=== PATIENT | female | born 1970 | race Caucasian/White ===

== ENCOUNTER 2016-12-25 23:38 | Emergency (ER) | payer MEDICAID ==
[2016-12-26 00:30] LABS: BASOPHIL % 0.3 % (0-2); PLATELET COUNT 260 x10^3mcL (130-400); RED CELL DISTRIBUTION WIDTH 12.8 % (11.5-14.5)
[2016-12-26 00:38] LABS: CALCIUM 8.9 mg/dL (8.5-10.1); CARBON DIOXIDE 28.9 mmol/L (21-32); CHLORIDE SERUM 102 mmol/L (98-107); CREATININE SERUM 0.8 mg/dL (0.6-1.0); GFR1 > 60 mL/min; GLUCOSE SERUM 333 mg/dL (74-106); SODIUM SERUM 135 mmol/L (136-145)
[2016-12-26 00:41] LABS: ALKALINE PHOSPHATASE 123 U/L (46-116); ALT/SGPT 30 U/L (14-59); AMYLASE 43 U/L (25-115); AST/SGOT 16 U/L (15-37); BILIRUBIN TOTAL 0.1 mg/dL (0.20-1.00); LIPASE 92 IU/L (73-393); TOTAL PROTEIN, SERUM 7.1 g/dL (6.4-8.2)
[2016-12-26 00:44] LABS: ALBUMIN 3.3 g/dL (3.4-5.0)
[2016-12-26 00:55] LABS: microscopic required? YES; urine erythrocyte NEGATIVE (NEGATIVE)
[2016-12-26 03:49] VITALS: BP 121/72
== END 2016-12-26 03:49 | disposition home or self-care (01) ==
LOC: ED 23:38
PROVIDERS: Emergency Medicine
DX: S20.211A Contusion of right front wall of thorax, initial encounter (principal); E11.9 Type 2 diabetes mellitus without complications; Z79.84 Long term (current) use of oral hypoglycemic drugs; W22.8XXA Striking against or struck by other objects, initial encounter; Y93.02 Activity, running; Y92.89 Other specified places as the place of occurrence of the external cause; Y99.8 Other external cause status
CPT/HCPCS: 36415; 82962; J1885; J2270; Q0092; Q0162